=== PATIENT | female | born 1990 | race Caucasian/White ===

== ENCOUNTER 2020-06-02 22:21 | Inpatient (IN) ==
[2020-06-02] MEDS ORDERED: 0.9 % SODIUM CHLORIDE 1,000 ML IV ONE (22:27)
[2020-06-02] MEDS ORDERED: NALOXONE HCL 0.4 MG/ML VIAL IV ONE (22:27)
[2020-06-02] MEDS ORDERED: NALOXONE HCL 0.4 MG/ML VIAL ONE (22:30)
[2020-06-02] MEDS ORDERED: MIDAZOLAM 5 MG/5 ML VIAL IV ONE (22:32)
[2020-06-02] MEDS ORDERED: ROCURONIUM 10 MG/ML ML IV ONE (22:35)
[2020-06-02 22:36] LABS: POC Blood Urea Nitrogen 12 mg/dL (6-20); POC CO2 28 mmol/L (22-30); POC Calcium, Ionized 1.21 mmEq/L (1.16-1.32); POC Chloride 103 mEq/L (96-108); POC Creatinine 0.8 mg/dL (0.6-1.2); POC Glucose, Random 83 mg/dL (70-105); POC Hematocrit 42 % (36-48); POC Potassium 4.6 mEql/L (3.3-5.1); POC Sodium 143 mEq/L (133-145)
[2020-06-02] MEDS ORDERED: PROPOFOL IV ONE (22:41)
[2020-06-02 22:53] LABS: Basophils # (Auto) 0.04 K/mcL (0.00-0.20); Basophils % (Auto) 0.4 % (0.0-2.0); Eosinophils # (Auto) 0.32 K/mcL (0.00-0.70); Hematocrit 39.6 % (36.0-48.0); Hemoglobin 13.3 g/dL (12.0-15.0); Mean Cell Volume 93.4 fL (80.0-100.0); Mean Corpuscular HGB Conc 33.6 g/dL (31.0-36.0); Mean Platelet Volume 10.9 fL (7.4-10.4); Monocytes # (Auto) 0.91 K/mcL (0.10-0.90); Monocytes % (Auto) 8.6 % (1.0-12.0); Platelet Count 245 K/mcL (140-440); RBC 4.24 M/mcL (4.00-5.20); Red Cell Distribution Width 11.7 % (11.5-14.5); WBC 10.6 K/mcL (4.5-11.0)
[2020-06-02] MEDS: PROPOFOL 1,000 MG in PREMIX 1 BAG IV SCH (23:07)
[2020-06-02] MEDS ORDERED: PROPOFOL 100 ML IV ONE (23:07)
[2020-06-02 23:15] LABS: Alcohol, Blood < 10.0 mg/dL; Alcohol,Blood < 0.010 gm/dL (<0.010)
[2020-06-02 23:16] LABS: ALT/SGPT 17 U/L (<40); AST/SGOT 26 U/L (<32); Albumin 4.7 gm/dL (3.2-5.2); Albumin/Globulin Ratio 1.6 (1.0-2.3); Alkaline Phosphatase 63 U/L (39-117); Bilirubin,Total 0.2 mg/dL (0.1-1.0); Blood Urea Nitrogen 11 mg/dL (6-20); Calcium 9.9 mg/dL (8.6-10.4); Carbon Dioxide 30 mmol/L (22-30); Chloride 102 mmol/L (96-108); Glomerular Filtration Rate 86; Glucose 82 mg/dL (70-105)
[2020-06-02 23:17] LABS: Acetaminophen < 5.0 ug/mL; Salicylate < 0.3 mg/dL
--- NOTE | 2020-06-02 23:19 | Emergency Department Note ---
Overdose HPI General Chief Complaint: Overdose Stated Complaint: resp arrest Time Seen by Provider: 06/02/20 22:26 Source: patient and other (acquaintence who was with her at door.) Mode of arrival: ambulatory Limitations: altered mental status History of Present Illness HPI Narrative: Narrative: 29-year-old female was at the door of the emergency department with an acquaintance who stated that she had either taken Suboxone or overdosed on Suboxone or overdosed on an illicit drug. Patient was unable to provide any history. She was moving about an uncoordinated fashion and seeming to have difficulty breathing. She was brought back and put on a bed in the emergency department and I was present momentarily after her arrival. I could not obtain any history and she seemed to be struggling to breathe. Related Data Home Medications Medication Instructions Recorded Confirmed buprenorphine-naloxone 2 film SUBLINGUAL QDAY 12/09/19 06/02/20 Allergies Allergy/AdvReac Type Severity Reaction Status Date / Time fentanyl AdvReac Severe Other Verified 06/02/20 22:27 Review of Systems ROS ROS Narrative: Narrative: Limitations: ROS unobtainable due to patients medical condition [facility] Narrative Patient History Narrative: Narr I was unable to attend any past medical family or social history. Ative: Medical/Surgical/Family History All Active Problems (Updated 06/02/20 @ 23:23 by Richard Martin MD) Respiratory failure (Acute) Drug overdose (Acute) Elbow sprain (Acute) History of surgical procedure (Acute) History of renal stent (Acute) History of surgery (Acute) Hx of tympanostomy tubes (Acute) History of ureter stent (Acute) History of dilation and curettage (Acute) History of cholecystectomy (Acute) Brain cyst (Acute) Migraine (Acute) Kidney stones (Acute ~2010) Knee joint pain (Acute) Insomnia (Acute ~2010) Depression (Acute) Daytime sleepiness (Acute) Muscle pain (Acute) Arthritis (Acute) Pain, dental (Acute) Bronchitis (Acute) Smoking addiction (Acute) Rash and nonspecific skin eruption (Acute) Hepatitis C (Acute) Abdominal pain, right upper quadrant (Acute) Nausea (Acute) Lightheadedness (Acute) History of migraine headaches (Chronic) Depression, major, recurrent (Chronic) Marijuana smoker, continuous (Chronic) Cigarette smoker (Chronic) Acute hepatitis (Acute) Choledocholithiasis (Acute) Carpal tunnel syndrome of right wrist (Chronic) Dental caries (Chronic) Anxiety (Chronic) Medical History (Updated 06/02/20 @ 23:23 by Richard Martin MD) Abdominal pain Acute hepatitis Allergic reaction Anemia Anxiety Arthritis Bacterial cystitis Brain cyst Carpal tunnel syndrome of right wrist Cellulitis and abscess of buttock Choledocholithiasis surgery in [place] at [facility] 06/05/19, patient reports stent put in, records requested Cigarette smoker Daytime sleepiness Dental abscess Dental caries Depression Depression, major, recurrent Endometritis following abortive Epigastric abdominal pain History of migraine headaches Insomnia (~2010) Kidney stones (~2010) Knee joint pain Marijuana smoker, continuous Mass of right axilla Patient reports biopsy as a child Migraine Migraine headache Muscle pain Overdose Suicidal ideation Suicide gesture UTI (urinary tract infection) Surgical History (Updated 10/12/19 @ 11:28 by Saida Cruz) History of cholecystectomy History of dilation and curettage History of renal stent History of surgery Tumor right arm mario alberto History of surgical procedure Liver stint History of ureter stent Hx of tympanostomy tubes Family History (Updated 10/12/19 @ 11:26 by Saida Cruz) Mother Alcohol abuse Diabetes High blood pressure Migraines Sister IV drug abuse Brother Drug abuse Family/Other Breast cancer cousin Father Diabetes Migraines Social History Smoking Status: Current every day smoker Alcohol Intake Frequency: former alcohol drinker Substance Use: former substance user, marijuana, heroin and other Exam Narrative Narrative: Narrative: General Limitations: altered mental status General appearance: Present obtunded Head Head: Present normocephalic and normal inspection Eye Eye: Present PERRL ENT ENT: Present normal oropharynx and mucous membranes moist Neck Neck: Present trachea midline Chest Chest: Present other (Poor movement with breathing.) Respiratory Respiratory: Present respiratory distress Cardiovascular Cardiovascular: Present tachycardia Adbominal Abdominal: Present soft Rectal Rectal: Present deferred Extremities Extremities: Present full ROM Neurological Neurological: Present other (At times responsive to pain and at other times unre sponsive to pain.) Psychiatric Psychiatric: Present other (Unable to assess due to her obtunded condition.) Skin Skin: Present warm (WNL), diaphoretic and other (Needle tracks noted on the right anterior thigh.) Course Reevaluation(s) Reevaluation #1: Patient is on a propofol drip but she remains a bit too agitated for CT of the head. I gave her initially 3 mg of Versed and later an additional 5 mg of Versed. A Versed drip was hung and the patient was able to g et her head CT. Time: 00:30 Reevaluation #2: CT scan was successfully obtained. Patient's vital signs are acceptable her. Her pulse ox is 100%. Heart rate is 50s. Patient has been assessed by Dr. Henriquez and will be admitted to the ICU after the head CT came back negative. Time: 01:15 Vital Signs Vital signs: Vital Signs Pulse Rate 114 H 06/02/20 22:23 Respiratory Rate 0 L 06/02/20 22:23 Blood Pressure 178/115 06/02/20 22:23 Pulse Oximetry (%) 70 L 06/02/20 22:23 Temperature 96.2 F L 06/03/20 00:46 Pulse Rate 52 L 06/03/20 00:46 Respiratory Rate 14 06/03/20 01:03 Blood Pressure 155/99 06/03/20 00:46 Pulse Oximetry (%) 96 06/03/20 01:03 Procedures Intubation Time out performed: No sedative: Versed Mg Given: 5 paralytic: Rocuronium Mg Given: 100 Laryngoscope: Orlin ET Tube Size: 7.5 ET Tube Uncuffed: No Tube Secured Depth (cm): 22 Tube Secured Location: teeth Tube Placement Confirmation: visualized tube passing through cords, equal breath sounds bilaterally, no breath sounds over epigastrium and confirmation by capnometry Patient Tolerated Procedure: other (Patient had minimal vomitus prior to the procedure. During intubation there was no vomitus material in the mouth and the cords and below the cords to the extent that I could see them were clear.) Intubation Complications: none Additional Comments: Prior to intubation the pulse ox was 94% heart rate was in the 170s and the blood pressure 170/140. [facility] Narrative Medical decision making narrative: narrative: [id number] female brought to the emergency department by an acquaintance who stated she may have overdosed on either Suboxone or other illicit drug. Patient was obtunded on arrival and flailing around with high concern for respiratory failure. Decision was made to do a immediate intubation and after equipment was obtained suction was set up respiratory therapy in the room and the patient being bag valve mask ventilated she was sedated with 5 mg of Versed then 100 mg of rocuronium and intubated on the first attempt. Her vitals remained wild afterwards with blood pressures in the 170s over 140s and heart rate in the 140s. However her first ABG gas came back with a pH of 7.40 and her vital signs improved with time. Her blood work was generally in the normal range although there is still some blood work pending at this time. Case was discussed with the hospitalist on duty Dr. Aquino the patient will be admitted to the ICU. A head CT was obtained prior to admission and a head CT was negative per radiology. Lab Data Result diagrams: 06/02/20 22:23 06/02/20 22:31 Labs: Lab Results 06/02/20 06/02/20 06/02/20 Range/Units 22:23 22:28 22:28 WBC 10.6 (4.5-11.0) K/mcL RBC 4.24 (4.00-5.20) M/mcL Hgb 13.3 (12.0-15.0) g/dL Hct 39.6 (36.0-48.0) % POC Hct (36-48) % MCV 93.4 (80.0-100.0) fL MCH 31.4 (26.0-34.0) pg MCHC 33.6 (31.0-36.0) g/dL RDW 11.7 (11.5-14.5) % Plt Count 245 (140-440) K/mcL MPV 10.9 H (7.4-10.4) fL Neut % (Auto) 54.0 (38.0-78.0) % Lymph % (Auto) 34.0 (15.0-49.0) % [place] % (Auto) 8.6 (1.0-12.0) % Eos % (Auto) 3.0 (0.0-7.0) % Baso % (Auto) 0.4 (0.0-2.0) % Lymph # (Auto) 3.60 (1.50-4.80) K/mcL [place] # (Auto) 0.91 H (0.10-0.90) K/mcL Eos # (Auto) 0.32 (0.00-0.70) K/mcL Baso # (Auto) 0.04 (0.00-0.20) K/mcL Absolute Neutrophils 5.73 (1.80-8.00) K/mcL PT 12.9 (11.9-14.5) sec INR 0.9 (0.9-1.1) APTT 30.1 (20.0-37.0) sec VBG Lactic Acid (0.5-2.0) mmol/L POC Sodium (133-145) mEq/L Sodium (133-145) mmol/L POC Potassium (3.3-5.1) mEql/L Potassium (3.3-5.1) mmol/L POC Chloride (96-108) mEq/L Chloride (96-108) mmol/L Carbon Dioxide (22-30) mmol/L POC Total CO2 (22-30) mmol/L Anion Gap (8.0-16.0) POC BUN (6-20) mg/dL BUN (6-20) mg/dL Creatinine (0.6-1.1) mg/dL POC Creatinine (0.6-1.2) mg/dL GFR Calculation Glucose (70-105) mg/dL POC Glucose (70-105) mg/dL Calcium (8.6-10.4) mg/dL POC WB Ioniz Calcium (1.16-1.32) mmEq/L Total Bilirubin (0.1-1.0) mg/dL AST (<32) U/L ALT (<40) U/L Alkaline Phosphatase (39-117) U/L Total Creatine Kinase (24-170) U/L Total Protein (5.9-8.4) gm/dL Albumin (3.2-5.2) gm/dL Globulin (2.2-3.7) gm/dL Albumin/Globulin Ratio (1.0-2.3) Urine Color Urine Appearance (Clear) Urine pH (5.0-9.0) Ur Specific [place] (1.000-1.035) Urine Protein (Negative) mg/dL Urine Glucose (UA) (Negative) mg/dL Urine Ketones (Negative) mg/dL Urine Occult Blood (Negative) mg/dL Urine Nitrate (Negative) Urine Bilirubin (Negative) mg/dL Urine Urobilinogen mg/dL Ur Leukocyte Esterase (Negative) /ug Ur Culture Indicated? Salicylates < 0.3 mg/dL Acetaminophen < 5.0 ug/mL Ethyl Alcohol (<0.010) gm/dL 06/02/20 06/02/20 06/02/20 Range/Units 22:28 22:31 22:36 WBC (4.5-11.0) K/mcL RBC (4.00-5.20) M/mcL Hgb (12.0-15.0) g/dL Hct (36.0-48.0) % POC Hct 42 (36-48) % MCV (80.0-100.0) fL MCH (26.0-34.0) pg MCHC (31.0-36.0) g/dL RDW (11.5-14.5) % Plt Count (140-440) K/mcL MPV (7.4-10.4) fL Neut % (Auto) (38.0-78.0) % Lymph % (Auto) (15.0-49.0) % [place] % (Auto) (1.0-12.0) % Eos % (Auto) (0.0-7.0) % Baso % (Auto) (0.0-2.0) % Lymph # (Auto) (1.50-4.80) K/mcL [place] # (Auto) (0.10-0.90) K/mcL Eos # (Auto) (0.00-0.70) K/mcL Baso # (Auto) (0.00-0.20) K/mcL Absolute Neutrophils (1.80-8.00) K/mcL PT (11.9-14.5) sec INR (0.9-1.1) APTT (20.0-37.0) sec VBG Lactic Acid (0.5-2.0) mmol/L POC Sodium 143 (133-145) mEq/L Sodium 140 (133-145) mmol/L POC Potassium 4.6 (3.3-5.1) mEql/L Potassium 4.6 (3.3-5.1) mmol/L POC Chloride 103 (96-108) mEq/L Chloride 102 (96-108) mmol/L Carbon Dioxide 30 (22-30) mmol/L POC Total CO2 28 (22-30) mmol/L Anion Gap 8.0 (8.0-16.0) POC BUN 12 (6-20) mg/dL BUN 11 (6-20) mg/dL Creatinine 0.9 (0.6-1.1) mg/dL POC Creatinine 0.8 (0.6-1.2) mg/dL GFR Calculation 86 Glucose 82 (70-105) mg/dL POC Glucose 83 (70-105) mg/dL Calcium 9.9 (8.6-10.4) mg/dL POC WB Ioniz Calcium 1.21 (1.16-1.32) mmEq/L Total Bilirubin 0.2 (0.1-1.0) mg/dL AST 26 (<32) U/L ALT 17 (<40) U/L Alkaline Phosphatase 63 (39-117) U/L Total Creatine Kinase 206 H (24-170) U/L Total Protein 7.7 (5.9-8.4) gm/dL Albumin 4.7 (3.2-5.2) gm/dL Globulin 3.0 (2.2-3.7) gm/dL Albumin/Globulin Ratio 1.6 (1.0-2.3) Urine Color Urine Appearance (Clear) Urine pH (5.0-9.0) Ur Specific [place] (1.000-1.035) Urine Protein (Negative) mg/dL Urine Glucose (UA) (Negative) mg/dL Urine Ketones (Negative) mg/dL Urine Occult Blood (Negative) mg/dL Urine Nitrate (Negative) Urine Bilirubin (Negative) mg/dL Urine Urobilinogen mg/dL Ur Leukocyte Esterase (Negative) /ug Ur Culture Indicated? Salicylates mg/dL Acetaminophen ug/mL Ethyl Alcohol < 0.010 (<0.010) gm/dL 06/02/20 06/02/20 Range/Units 22:46 23:48 WBC (4.5-11.0) K/mcL RBC (4.00-5.20) M/mcL Hgb (12.0-15.0) g/dL Hct (36.0-48.0) % POC Hct (36-48) % MCV (80.0-100.0) fL MCH (26.0-34.0) pg MCHC (31.0-36.0) g/dL RDW (11.5-14.5) % Plt Count (140-440) K/mcL MPV (7.4-10.4) fL Neut % (Auto) (38.0-78.0) % Lymph % (Auto) (15.0-49.0) % [place] % (Auto) (1.0-12.0) % Eos % (Auto) (0.0-7.0) % Baso % (Auto) (0.0-2.0) % Lymph # (Auto) (1.50-4.80) K/mcL [place] # (Auto) (0.10-0.90) K/mcL Eos # (Auto) (0.00-0.70) K/mcL Baso # (Auto) (0.00-0.20) K/mcL Absolute Neutrophils (1.80-8.00) K/mcL PT (11.9-14.5) sec INR (0.9-1.1) APTT (20.0-37.0) sec VBG Lactic Acid 1.4 (0.5-2.0) mmol/L POC Sodium (133-145) mEq/L Sodium (133-145) mmol/L POC Potassium (3.3-5.1) mEql/L Potassium (3.3-5.1) mmol/L POC Chloride (96-108) mEq/L Chloride (96-108) mmol/L Carbon Dioxide (22-30) mmol/L POC Total CO2 (22-30) mmol/L Anion Gap (8.0-16.0) POC BUN (6-20) mg/dL BUN (6-20) mg/dL Creatinine (0.6-1.1) mg/dL POC Creatinine (0.6-1.2) mg/dL GFR Calculation Glucose (70-105) mg/dL POC Glucose (70-105) mg/dL Calcium (8.6-10.4) mg/dL POC WB Ioniz Calcium (1.16-1.32) mmEq/L Total Bilirubin (0.1-1.0) mg/dL AST (<32) U/L ALT (<40) U/L Alkaline Phosphatase (39-117) U/L Total Creatine Kinase (24-170) U/L Total Protein (5.9-8.4) gm/dL Albumin (3.2-5.2) gm/dL Globulin (2.2-3.7) gm/dL Albumin/Globulin Ratio (1.0-2.3) Urine Color Yellow Urine Appearance Cloudy A (Clear) Urine pH 7.0 (5.0-9.0) Ur Specific [place] 1.014 (1.000-1.035) Urine Protein Negative (Negative) mg/dL Urine Glucose (UA) Negative (Negative) mg/dL Urine Ketones Negative (Negative) mg/dL Urine Occult Blood Negative (Negative) mg/dL Urine Nitrate Negative (Negative) Urine Bilirubin Negative (Negative) mg/dL Urine Urobilinogen Negative mg/dL Ur Leukocyte Esterase Negative (Negative) /ug Ur Culture Indicated? No Salicylates mg/dL Acetaminophen ug/mL Ethyl Alcohol (<0.010) gm/dL ED POC Tests ED POC Tests: HCG POC Results Negative CC TIME Critical Care Time Total Critical Care Time: 45 (min exclusive of all procedures) Attestation: The patient was alternating between apneic and gasping for breath prior to intubation and her life depended on having a secure airway. Patient received paralytics and sedation and the intubation was successful on the first attempt. The patient was in critical condition. for 45 minutes she required my efforts and attention exclusive of any procedures. Discharge Plan Patient/Caregiver Discharge Instructions Pt seen by BLOW MOLDER/PA only: No Clinical Impression: Respiratory failure, Drug overdose Activity: other Activity Restrictions/Additional Instructions: Patient was discussed with Dr. Henriquez the hospitalist. Patient will be admitted to the intensive care unit. She is on a ventilator and a propofol drip. Patient Disposition: Still a Patient Condition: Critical Follow up with: Eva Alonzo PA-C [Primary Care Provider] - Prescriptions: No Action buprenorphine-naloxone 8-2 mg film 2 film SUBLINGUAL QDAY RF: 0
[2020-06-02] MEDS ORDERED: MIDAZOLAM PF 50 MG in 0.9 % SODIUM CHLORIDE 90 ML IV SCH (23:30)
--- NOTE | 2020-06-02 23:34 | Internal Med History&Physical ---
HPI History of Present Illness Patient information: Note initiated : 06/02/20 at 11:27 pm Service Date, if different from initiated Date: [] Patient: Maryjane Geller a 29 y/o F admitted on for resp arrest. Chief Complaint: [] History of present illness: Ms. Geller is a 29 year old F Was brought into the ED front doors by someone and she was almost unconscious. She seemed to be flailing around and gasping for air when she suddenly stopped breathing. Patient was immediately intubated without complications. ABG with good parameters she is not acidotic. Chemistry good. Lactate within normal limits. Salicylates and Tylenol alcohol unremarkable. She was tachycardic and hypertensive when she came in. Afebrile. In fact mildly plethoric. Unable to gather review of systems given current sedation PFSH PFSH All Active Problems (Updated 06/02/20 @ 23:23 by Richard Martin MD) Respiratory failure (Acute) Drug overdose (Acute) Elbow sprain (Acute) History of surgical procedure (Acute) History of renal stent (Acute) History of surgery (Acute) Hx of tympanostomy tubes (Acute) History of ureter stent (Acute) History of dilation and curettage (Acute) History of cholecystectomy (Acute) Brain cyst (Acute) Migraine (Acute) Kidney stones (Acute ~2010) Knee joint pain (Acute) Insomnia (Acute ~2010) Depression (Acute) Daytime sleepiness (Acute) Muscle pain (Acute) Arthritis (Acute) Pain, dental (Acute) Bronchitis (Acute) Smoking addiction (Acute) Rash and nonspecific skin eruption (Acute) Hepatitis C (Acute) Abdominal pain, right upper quadrant (Acute) Nausea (Acute) Lightheadedness (Acute) History of migraine headaches (Chronic) Depression, major, recurrent (Chronic) Marijuana smoker, continuous (Chronic) Cigarette smoker (Chronic) Acute hepatitis (Acute) Choledocholithiasis (Acute) Carpal tunnel syndrome of right wrist (Chronic) Dental caries (Chronic) Anxiety (Chronic) Medical History (Updated 06/02/20 @ 23:23 by Richard Martin MD) Abdominal pain Acute hepatitis Allergic reaction Anemia Anxiety Arthritis Bacterial cystitis Brain cyst Carpal tunnel syndrome of right wrist Cellulitis and abscess of buttock Choledocholithiasis surgery in [place] at [facility] 06/05/19, patient reports stent put in, records requested Cigarette smoker Daytime sleepiness Dental abscess Dental caries Depression Depression, major, recurrent Endometritis following abortive Epigastric abdominal pain History of migraine headaches Insomnia (~2010) Kidney stones (~2010) Knee joint pain Marijuana smoker, continuous Mass of right axilla Patient reports biopsy as a child Migraine Migraine headache Muscle pain Overdose Suicidal ideation Suicide gesture UTI (urinary tract infection) Surgical History (Updated 10/12/19 @ 11:28 by Saida Cruz) History of cholecystectomy History of dilation and curettage History of renal stent History of surgery Tumor right arm mario alberto History of surgical procedure Liver stint History of ureter stent Hx of tympanostomy tubes Family History (Updated 10/12/19 @ 11:26 by Saida Cruz) Mother Alcohol abuse Diabetes High blood pressure Migraines Sister IV drug abuse Brother Drug abuse Family/Other Breast cancer cousin Father Diabetes Migraines Social History (Updated 10/12/19 @ 11:27 by Saida Cruz) marital status: single smoking status: Current every day smoker tobacco type: cigarettes per day: 4 alcohol intake frequency: former alcohol drinker substance use type: former substance user, marijuana, heroin and other details: methamphetamine MEDS/ALLERGIES Home Medications and Allergies Home Medications Medication Instructions Recorded Confirmed Type buprenorphine-naloxone 2 film SUBLINGUAL QDAY 12/09/19 06/02/20 History Allergies Allergy/AdvReac Type Severity Reaction Status Date / Time fentanyl AdvReac Severe Other Verified 06/02/20 22:27 EXAM Constitutional Vitals: Temp Pulse Resp BP Pulse Ox 94.7 F L 59 L 27 H 137/113 96 06/02/20 23:21 06/02/20 23:21 06/02/20 23:21 06/02/20 23:17 06/02/20 23:21 Exam: General: Sedated on the vent Eyes/N/T: PERRL Head/Neck: neck supple, normocephalic atraumatic CV: RRR, No murmurs, normal s1/s2 Pulm: Clear b/l, no wheezing/rhonchi/rales Abd: soft, nontender, +BS x4 Ext: no clubbing/cyanosis/edema Neuro: Sedated on the vent, pupils are equal round reactive. Extremity twitching. Did receive paralytic prior to intubation. Skin: warm/dry DATA Data Completed and Pending Labs: Labs from last 24 hours 06/02/20 06/02/20 06/02/20 22:46 22:36 22:32 WBC 10.6 RBC 4.24 Hgb 13.3 Hct 39.6 POC Hct MCV 93.4 MCH 31.4 MCHC 33.6 RDW 11.7 Plt Count 245 MPV 10.9 H Neut % (Auto) 54.0 Lymph % (Auto) 34.0 [place] % (Auto) 8.6 Eos % (Auto) 3.0 Baso % (Auto) 0.4 Lymph # (Auto) 3.60 [place] # (Auto) 0.91 H Eos # (Auto) 0.32 Baso # (Auto) 0.04 Absolute Neutrophils 5.73 VBG Lactic Acid Pending POC Sodium Sodium POC Potassium Potassium POC Chloride Chloride Carbon Dioxide POC Total CO2 Anion Gap POC BUN BUN Creatinine POC Creatinine GFR Calculation Glucose POC Glucose Calcium POC WB Ioniz Calcium Total Bilirubin AST ALT Alkaline Phosphatase Total Protein Albumin Globulin Albumin/Globulin Ratio Salicylates Acetaminophen Ethyl Alcohol < 0.010 06/02/20 06/02/20 22:31 22:28 WBC RBC Hgb Hct POC Hct 42 MCV MCH MCHC RDW Plt Count MPV Neut % (Auto) Lymph % (Auto) [place] % (Auto) Eos % (Auto) Baso % (Auto) Lymph # (Auto) [place] # (Auto) Eos # (Auto) Baso # (Auto) Absolute Neutrophils VBG Lactic Acid POC Sodium 143 Sodium 140 POC Potassium 4.6 Potassium 4.6 POC Chloride 103 Chloride 102 Carbon Dioxide 30 POC Total CO2 28 Anion Gap 8.0 POC BUN 12 BUN 11 Creatinine 0.9 POC Creatinine 0.8 GFR Calculation 86 Glucose 82 POC Glucose 83 Calcium 9.9 POC WB Ioniz Calcium 1.21 Total Bilirubin 0.2 AST 26 ALT 17 Alkaline Phosphatase 63 Total Protein 7.7 Albumin 4.7 Globulin 3.0 Albumin/Globulin Ratio 1.6 Salicylates < 0.3 Acetaminophen < 5.0 Ethyl Alcohol A/P Narrative A/P Narrative: A: *Respiratory Arrest/acute hypoxic respiratory failure: 2/2 overdose *Drug overdose Methamphetamine/Suboxone per history (history of substance abuse/IVDU): -No acidosis at this time or hyperthermia, was initially mildly tachycardic, was hypertensive *Encephalopathy: 2/2 above -CT brain no acute *depression/anxiety: *Tobacco abuse: *History of hepatitis C: Followed with Infectious dz * P: -Vent Management -Versed gtt, aggressive sedation -Monitor for acidosis/hyperthermia -avoid acetaminophen/beta blockers -IVF -i/o's, uop -QBH when able -ppx: Lovenox Time Spent With Patient Time: Total time spent is greater than 50% in coordination of care (as docu mented) at patient's floor/unit and/or counseling patient:
[2020-06-03] MEDS ORDERED: MIDAZOLAM 5 MG/5 ML VIAL IV ONE ×3 (00:01)
[2020-06-03] MEDS ORDERED: MIDAZOLAM 2 MG/2 ML VIAL ONE ×3 (00:11→00:13)
[2020-06-03 00:23] LABS: Appearance,Urine CLOUDY (Clear); Bilirubin,Urine Negative (Negative); Color,Urine YELLOW; Culture Indicated,Urine No; Glucose,Urine (UA) Negative (Negative); Ketones,Urine Negative (Negative); Leukocyte Esterase,Urine Negative /ug (Negative); Nitrate,Urine Negative (Negative); Protein,Urine Negative (Negative); Specific Gravity,Urine 1.014 (1.000-1.035); Urine Blood Negative (Negative); Urobilinogen,Urine Negative
[2020-06-03 00:29] LABS: INR 0.9 (0.9-1.1); Partial Thromboplastin Time 30.1 sec (20.0-37.0); Prothrombin Time 12.9 sec (11.9-14.5)
[2020-06-03] MEDS ORDERED: 0.9 % SODIUM CHLORIDE 1,000 ML IV SCH (01:45)
[2020-06-03 02:42] LABS: Amphetamine Screen,Urine Suspect positive; Barbiturate Screen,Urine None detected; Benzodiazepines Screen,Urine Suspect positive; Cannabinoid Screen,Urine None detected; Cocaine Screen,Urine None detected; Opiate Screen,Urine None detected; Oxycodone, Urine Screen None detected; Phencyclidine Screen,Urine None detected
[2020-06-03] MEDS: PROPOFOL 1,000 MG in PREMIX 1 BAG IV SCH ×3 (04:50→21:57)
[2020-06-03] MEDS: 0.9 % SODIUM CHLORIDE 10 ML SYRINGE IV SCH ×3 (05:45→21:59)
[2020-06-03 06:38] LABS: Basophils # (Auto) 0.02 K/mcL (0.00-0.20); Basophils % (Auto) 0.2 % (0.0-2.0); Eosinophils # (Auto) 0.02 K/mcL (0.00-0.70); Eosinophils % (Auto) 0.2 % (0.0-7.0); Hematocrit 35.6 % (36.0-48.0); Lymphocytes # (Auto) 1.07 K/mcL (1.50-4.80); Lymphocytes % (Auto) 8.5 % (15.0-49.0); Mean Cell Volume 93.7 fL (80.0-100.0); Mean Corpuscular HGB Conc 33.7 g/dL (31.0-36.0); Mean Platelet Volume 11.1 fL (7.4-10.4); Neutrophils % (Auto) 87.1 % (38.0-78.0); Platelet Count 207 K/mcL (140-440); Red Cell Distribution Width 11.7 % (11.5-14.5); WBC 12.6 K/mcL (4.5-11.0)
[2020-06-03 07:08] LABS: ALT/SGPT 13 U/L (<40); AST/SGOT 33 U/L (<32); Albumin 3.6 gm/dL (3.2-5.2); Albumin/Globulin Ratio 1.4 (1.0-2.3); Alkaline Phosphatase 56 U/L (39-117); Bilirubin,Direct < 0.2 mg/dL (<0.3); Bilirubin,Total 0.3 mg/dL (0.1-1.0); Blood Urea Nitrogen 8 mg/dL (6-20); Calcium 8.2 mg/dL (8.6-10.4); Carbon Dioxide 21 mmol/L (22-30); Chloride 106 mmol/L (96-108); Globulin 2.6 gm/dL (2.2-3.7); Glomerular Filtration Rate 116; Glucose 112 mg/dL (70-105); Lactate Dehydrogenase 261 U/L (135-225); Phosphorous 2.4 mg/dL (2.5-4.5); Triglycerides 46 mg/dL (<150); Uric Acid 2.6 mg/dL (2.5-8.0)
--- NOTE | 2020-06-03 07:43 | XRay Report ---
HISTORY: Respiratory arrest and intubated FINDINGS: Endotracheal tube is well-positioned 3.7 cm above the stacy. There is no pneumothorax, pleural effusion or widening of the mediastinum. Lung volumes are normal but there is mild generalized haziness throughout the lung parenchyma bilaterally. No lobar consolidation is present. The heart size is normal. IMPRESSION: Well-positioned endotracheal tube. Vague alveolar opacities in both lungs which could be due to inflammation or edema. Interpreted and Authenticated by: Willy Rodriguez 06/03/20
--- NOTE | 2020-06-03 07:49 | Internal Med Progress Note ---
SUBJECTIVE Subjective Patient information: Note initiated : 06/03/20 at 7:47 am Service Date, if different from initiated Date: [] Patient: Maryjane Geller a 29 y/o F admitted on 06/03/20 for resp arrest. Chief Complaint: [] Interval history: History of present illness: Ms. Geller is a 29 year old F Was brought into the ED front doors by someone and she was almost unconscious. She seemed to be flailing around and gasping for air when she suddenly stopped breathing. Patient was immediately intubated without complications. ABG with good parameters she is not acidotic. Chemistry good. Lactate within normal limits. Salicylates and Tylenol alcohol unremarkable. She was tachycardic and hypertensive when she came in. Afebrile. In fact mildly plethoric. beta-HCG negative 3/2 Sedated on vent. Laboratory unremarkable. No overnight events. Able to gather review of system given current sedation intubation Constitutional Vitals: Vital Signs Temp Pulse Resp BP Pulse Ox 97.7 F 62 14 139/89 100 06/03/20 07:31 06/03/20 04:09 06/03/20 07:31 06/03/20 07:31 06/03/20 07:31 Period Temp Pulse Resp BP Sys/Luke Pulse Ox Last 24 Hr 94.2 F-97.7 F 25-114 0-27 120-197/75-180 70-100 Intake and Output 06/02/20 06/03/20 06/03/20 21:59 05:59 13:59 Intake Total 1159 Output Total 625 100 Balance 534 -100 Weight 73.391 kg Intake & Output: Intake & Output 06/02/20 06/03/20 06/03/20 21:59 05:59 13:59 Intake Total 1159 Output Total 625 100 Balance 534 -100 Weight 73.391 kg Intake: IV 1159 Sodium Chloride 0.9% 1,000 ml @ 1000 Wide Open IV .Q0M ONE Rx#: [id number] Versed 50 mg In Sodium Chloride 51 0.9% 90 ml @ 0.02 MG/KG/HR 2. 885 mls/hr IV Q24H [facility] Rx#: [id number] Diprivan 1,000 mg In Premix 1 108 Bag @ 5 MCG/KG/MIN 2.164 mls/hr IV .Q24H [facility] Rx#:[id number] Tube Feeding 0 Output: Urine Catheter Amount 625 100 Other: Urine Appearance Clear Uretheral (Dias) Cloudy Urine Color Light Jailene Uretheral (Dias) Bright Yellow Urine Odor Normal Exam: v General: Sedated on the vent Eyes/N/T: PERRL Head/Neck: neck supple, normocephalic atraumatic CV: RRR, No murmurs, normal s1/s2 Pulm: Clear b/l, no wheezing/rhonchi/rales Abd: soft, nontender, +BS x4 Ext: no clubbing/cyanosis/edema Neuro: Sedated on the vent, pupils are equal round reactive. spontaneously moves extremities when sedation turned down Skin: warm/dry OBJ DATA Labs CBC & Chem 7: 06/03/20 05:22 06/03/20 05:21 Labs: Abnormal Lab Results 06/03/20 06/03/20 06/02/20 05:22 05:21 23:52 WBC 12.6 H RBC 3.80 L Hct 35.6 L MPV 11.1 H Neut % (Auto) 87.1 H Lymph % (Auto) 8.5 L Lymph # (Auto) 1.07 L [place] # (Auto) Absolute Neutrophils 10.99 H Carbon Dioxide 21 L Glucose 112 H Calcium 8.2 L Phosphorus 2.4 L AST 33 H Lactate Dehydrogenase 261 H Total Creatine Kinase Urine Appearance Ur Amphetamines Screen Suspect positive A U Benzodiazepines Scrn Suspect positive A 06/02/20 06/02/20 06/02/20 23:48 22:28 22:23 WBC RBC Hct MPV 10.9 H Neut % (Auto) Lymph % (Auto) Lymph # (Auto) [place] # (Auto) 0.91 H Absolute Neutrophils Carbon Dioxide Glucose Calcium Phosphorus AST Lactate Dehydrogenase Total Creatine Kinase 206 H Urine Appearance Cloudy A Ur Amphetamines Screen U Benzodiazepines Scrn Meds: Medications Chlorhexidine Gluconate (Chlorhexidine Gluconate 1 Ml Oral.Mackenzie) 15 ml SWABMOUTH BID [facility] Enoxaparin Sodium (Enoxaparin 40 Mg/0.4 Ml Syringe) 40 mg SQ DAILY [facility] Propofol 1,000 mg/ Premix 100 mls @ 2.164 mls/hr IV .Q24H [facility]; Protocol Last Titration: 06/03/20 05:56 Dose: 30 mcg/kg/min, 12.982 mls/hr Documented by: Midazolam HCl 50 mg/ Sodium (Chloride) 100 mls @ 2.885 mls/hr IV Q24H [facility]; Protocol Last Titration: 06/03/20 05:57 Dose: 0.08 mg/kg/hr, 11.539 mls/hr Documented by: Sodium Chloride (Sodium Chloride 0.9%) 1,000 mls @ 75 mls/hr IV .[id number] [facility] Last Admin: 06/03/20 03:17 Dose: 75 mls/hr Documented by: Morphine Sulfate (Morphine 4 Mg/Ml Vial) 1 - 3 mg IV Q3HP PRN; Protocol PRN Reason: Per Pain Protocol Sodium Chloride (0.9 % Sodium Chloride 10 Ml Syringe) 10 ml IV Q8 [facility] Last Admin: 06/03/20 05:45 Dose: Not Given Documented by: A/P Narrative A/P Narrative: A: *Respiratory Arrest/acute hypoxic respiratory failure: 2/2 overdose *Drug overdose Methamphetamine/Suboxone per history (history of substance abuse/IVDU): -No acidosis at this time or hyperthermia, was initially mildly tachycardic, was hypertensive *Encephalopathy: 2/2 above -CT brain no acute *depression/anxiety: *Tobacco abuse: *History of hepatitis C: Followed with Infectious dz * P: -Vent Management -Versed gtt, aggressive sedation -Monitor for acidosis/hyperthermia -avoid acetaminophen/beta blockers -IVF -i/o's, uop -QBH when able -ppx: Lovenox Time Spent With Patient Time: Total time spent is greater than 50% in coordination of care (as documented) at patient's floor/unit and/or counseling patient:
--- NOTE | 2020-06-03 07:58 | Cat Scan Report ---
History: Drug overdose with respiratory arrest TECHNIQUE: The brain was imaged without contrast at 2.5 mm intervals. The radiation exposure was limited using dose reduction technology. FINDINGS: The brain is normally developed. There is no evidence of hemorrhage edema, infarct or mass effect. The ventricles and cisterns are normal. There is no abnormal extra-axial fluid collection. Bone windows show no skull lesion. The visualized sinuses are clear. IMPRESSION: Normal exam Interpreted and Authenticated by: Willy Rodriguez 06/03/20
--- NOTE | 2020-06-03 07:59 | XRay Report ---
HISTORY: Overdose with respiratory arrest and intubated FINDINGS: Endotracheal tube is well-positioned. Nasogastric tube has been inserted and passes through the esophagus into the stomach. There is a large amount gas in the stomach. There are moderate diffuse alveolar infiltrates throughout both lungs which have become worse since the prior study performed on 06/02/20. There is no pneumothorax, pleural effusion or widening of the mediastinum. The heart size is normal. IMPRESSION: Well-positioned support tubes. Worsening alveolar opacities in both lungs which could be due to edema or an inflammatory process Interpreted and Authenticated by: Willy Rodriguez 06/03/20
--- NOTE | 2020-06-03 08:00 | XRay Report ---
HISTORY: Nasogastric tube insertion FINDINGS: The NG tube is located in the body of the stomach. The sidehole is near the cardia. A moderate amount of gas in the stomach. There is also air in nondilated large and small intestine. Clips are present in the gallbladder fossa. IMPRESSION: Well-positioned nasogastric tube Interpreted and Authenticated by: Willy Rodriguez 06/03/20
[2020-06-03] MEDS ORDERED: CHLORHEXIDINE GLUCONATE 1 ML ORAL.SOL SWABMOUTH SCH (09:00)
[2020-06-03] MEDS: morphine 4 MG/ML VIAL IV PRN ×2 (09:48→23:35)
[2020-06-03] MEDS: CHLORHEXIDINE GLUCONATE 1 ML ORAL.SOL SWABMOUTH SCH ×2 (09:48→21:26)
[2020-06-03] MEDS: ENOXAPARIN 40 MG/0.4 ML SYRINGE SQ SCH (09:50)
[2020-06-03] MEDS: 0.9 % SODIUM CHLORIDE 1,000 ML IV SCH ×2 (09:54→19:49)
[2020-06-03] MEDS ORDERED: MIDAZOLAM PF 50 MG in 0.9 % SODIUM CHLORIDE 90 ML IV SCH (10:30)
[2020-06-03] MEDS: MIDAZOLAM PF 50 MG in 0.9 % SODIUM CHLORIDE 90 ML IV SCH ×3 (14:56→22:30)
[2020-06-03] MEDS: DEXTROSE 5%-1/2NS 1,000 ML IV SCH (19:47)
[2020-06-03] MEDS ORDERED: PROPOFOL 100 ML IV ONE (21:34)
[2020-06-04] MEDS: MIDAZOLAM PF 50 MG in 0.9 % SODIUM CHLORIDE 90 ML IV SCH ×2 (03:25→06:47)
[2020-06-04] MEDS: PROPOFOL 1,000 MG in PREMIX 1 BAG IV SCH (05:27)
[2020-06-04] MEDS: 0.9 % SODIUM CHLORIDE 10 ML SYRINGE IV SCH (05:34)
[2020-06-04 07:02] LABS: Basophils # (Auto) 0.02 K/mcL (0.00-0.20); Basophils % (Auto) 0.3 % (0.0-2.0); Eosinophils # (Auto) 0.14 K/mcL (0.00-0.70); Eosinophils % (Auto) 1.8 % (0.0-7.0); Hematocrit 32.5 % (36.0-48.0); Lymphocytes # (Auto) 1.69 K/mcL (1.50-4.80); Lymphocytes % (Auto) 21.1 % (15.0-49.0); Mean Cell Volume 93.1 fL (80.0-100.0); Mean Corpuscular HGB Conc 33.8 g/dL (31.0-36.0); Mean Platelet Volume 11.4 fL (7.4-10.4); Monocytes # (Auto) 0.86 K/mcL (0.10-0.90); Monocytes % (Auto) 10.8 % (1.0-12.0); Platelet Count 182 K/mcL (140-440); RBC 3.49 M/mcL (4.00-5.20)
[2020-06-04] MEDS: DEXTROSE 5%-1/2NS 1,000 ML IV SCH ×2 (07:37→22:07)
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
[2020-06-04] MEDS: CHLORHEXIDINE GLUCONATE 1 ML ORAL.SOL SWABMOUTH SCH (07:44)
[2020-06-04] MEDS: ENOXAPARIN 40 MG/0.4 ML SYRINGE SQ SCH (07:45)
[2020-06-04 07:53] LABS: ALT/SGPT 11 U/L (<40); AST/SGOT 27 U/L (<32); Albumin 3.3 gm/dL (3.2-5.2); Albumin/Globulin Ratio 1.3 (1.0-2.3); Alkaline Phosphatase 50 U/L (39-117); Bilirubin,Direct < 0.2 mg/dL (<0.3); Bilirubin,Total 0.3 mg/dL (0.1-1.0); Blood Urea Nitrogen 4 mg/dL (6-20); Calcium 8.3 mg/dL (8.6-10.4); Carbon Dioxide 23 mmol/L (22-30); Chloride 107 mmol/L (96-108); Globulin 2.5 gm/dL (2.2-3.7); Glomerular Filtration Rate 116; Glucose 96 mg/dL (70-105); Lactate Dehydrogenase 196 U/L (135-225); Phosphorous 2.3 mg/dL (2.5-4.5); Triglycerides 56 mg/dL (<150); Uric Acid 1.1 mg/dL (2.5-8.0)
[2020-06-04] MEDS ORDERED: POTASSIUM PHOSPHATE 20 MEQ in DEXTROSE 5% IN WATER 250 ML IV ONE (07:54)
[2020-06-04] MEDS ORDERED: 0.9 % SODIUM CHLORIDE 250 ML IV SCH ×2 (08:00)
--- NOTE | 2020-06-04 08:49 | XRay Report ---
HISTORY: Intubated, recent respiratory arrest, follow-up pulmonary infiltrates FINDINGS: Endotracheal tube and nasogastric tube are well-positioned. The diffuse alveolar infiltrates seen throughout both lungs on 06/03/20 have nearly but not completely resolved. There is no pleural effusion or pneumothorax. The heart size and mediastinum are normal. IMPRESSION: Resolving bilateral pulmonary infiltrates Interpreted and Authenticated by: Willy Rodriguez 06/04/20
[2020-06-04 08:53] LABS: Eosinophils % (Manual) 3 % (0-7); Lymphocytes % 15 % (15-49); Monocytes % (Manual) 9 % (1-12); Platelet Estimate NORMAL (Normal); RBC Morphology NORMAL (Normal); Segmented Neutrophils % 73 % (38-78)
[2020-06-04] MEDS ORDERED: MIDAZOLAM PF 50 MG in 0.9 % SODIUM CHLORIDE 90 ML IV SCH (10:00)
[2020-06-04] MEDS ORDERED: LORazepam 2 MG/ML VIAL IV PRN (10:28)
[2020-06-04] MEDS ORDERED: BENZOCAINE/MENTHOL 1 LOZENGE PO PRN (15:38)
[2020-06-04] MEDS ORDERED: ACETAMINOPHEN 650 MG/65 ML BAG IV PRN (17:06)
[2020-06-05 06:36] LABS: Basophils # (Auto) 0.03 K/mcL (0.00-0.20); Basophils % (Auto) 0.5 % (0.0-2.0); Eosinophils # (Auto) 0.33 K/mcL (0.00-0.70); Eosinophils % (Auto) 5.7 % (0.0-7.0); Hemoglobin 10.3 g/dL (12.0-15.0); Lymphocytes # (Auto) 2.16 K/mcL (1.50-4.80); Mean Cell Volume 94.2 fL (80.0-100.0); Mean Corpuscular HGB Conc 33.2 g/dL (31.0-36.0); Mean Platelet Volume 11.3 fL (7.4-10.4); Monocytes # (Auto) 0.66 K/mcL (0.10-0.90); Monocytes % (Auto) 11.3 % (1.0-12.0); Neutrophils % (Auto) 45.5 % (38.0-78.0); Platelet Count 160 K/mcL (140-440); RBC 3.29 M/mcL (4.00-5.20); Red Cell Distribution Width 11.9 % (11.5-14.5); WBC 5.8 K/mcL (4.5-11.0)
[2020-06-05 07:03] LABS: ALT/SGPT 10 U/L (<40); AST/SGOT 26 U/L (<32); Albumin/Globulin Ratio 1.1 (1.0-2.3); Alkaline Phosphatase 43 U/L (39-117); Bilirubin,Direct < 0.2 mg/dL (<0.3); Bilirubin,Total 0.5 mg/dL (0.1-1.0); Blood Urea Nitrogen 5 mg/dL (6-20); Calcium 8.3 mg/dL (8.6-10.4); Carbon Dioxide 26 mmol/L (22-30); Chloride 106 mmol/L (96-108); Globulin 2.7 gm/dL (2.2-3.7); Glomerular Filtration Rate 122; Glucose 96 mg/dL (70-105); Lactate Dehydrogenase 165 U/L (135-225); Phosphorous 3.2 mg/dL (2.5-4.5); Triglycerides 52 mg/dL (<150); Uric Acid 1.4 mg/dL (2.5-8.0)
[2020-06-05] MEDS: ENOXAPARIN 40 MG/0.4 ML SYRINGE SQ SCH (09:03)
[2020-06-05] MEDS ORDERED: ACETAMINOPHEN 325 MG TABLET PO PRN ×2 (09:33→09:37)
[2020-06-05] MEDS ORDERED: BENZOCAINE/MENTHOL 1 LOZENGE PO PRN (09:37)
[2020-06-05] MEDS ORDERED: ACETAMINOPHEN 650 MG/65 ML BAG IV PRN (09:37)
[2020-06-05] MEDS ORDERED: NALOXONE HCL 0.4 MG/ML VIAL ONE (09:37)
[2020-06-05] MEDS: DEXTROSE 5%-1/2NS 1,000 ML IV SCH (09:40)
--- NOTE | 2020-06-05 09:53 | XRay Report ---
HISTORY: Extubated FINDINGS: endotracheal tube, nasogastric tube and right internal jugular lines have been removed since the previous x-ray performed yesterday. Lungs are clear and well expanded. The heart size, mediastinum, heike and pleura are normal. IMPRESSION: Normal exam Interpreted and Authenticated by: Willy Rodriguez 06/05/20
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
[2020-06-06] MEDS ORDERED: BUPRENORPHINE NALOXONE SL SCH (09:00)
== END 2020-06-05 15:15 | disposition home or self-care (01) | DRG 208 ==
LOC: ED 22:21 → ICU 06-03 02:11
PROVIDERS: ADMIT Internal Medicine; ATTEND Internal Medicine